=== PATIENT | female | born 1955 | race Caucasian/White ===

== ENCOUNTER 2023-10-26 06:33 | Day surgery (SDC) | payer MEDICARE, BC, SELFPAY ==
[2023-10-20 09:08] VITALS: BMI 33.8
--- NOTE | 2023-10-23 10:13 | HO.ANESPROP2 ---
Documented by User: Lucila Corley NP 10/23/23 10:14 HPI - Anesthesia Eval Consult details Narrative: 68yo F for?Right Cataract Extraction IOL Insertion No previous cataract [facility] Past Medical History Medical History Palpitations Colon cancer Rosacea Osteopenia Iron deficiency anemia Back pain Diabetes Surgical History Surgical History Hx of gastric bypass Hx of lumbar discectomy History of surgery on right wrist History of colon resection Social History Social History Patient Tobacco Use Status: Never used Tobacco Use of substances other than those prescribed or required for medical reasons: No Advance Directives Information Provided: Yes Advance Directives on File: No Meds Allergies Allergy/AdvReac Type Severity Reaction Status Date / Time No Known Allergies Allergy Verified 10/20/23 09:01 Home Medications ?Medication ?Instructions ?Recorded ?Confirmed ?Last Taken ?Type ascorbic acid (vitamin C) 500 mg 500 mg PO DAILY 10/20/23 10/20/23 Unknown History tablet (Vitamin C) ferrous sulfate 325 mg (65 mg 325 mg PO DAILY 10/20/23 10/20/23 Unknown History iron) tablet ibuprofen 600 mg tablet 600 mg PO Q6H PRN Pain 10/20/23 10/20/23 Unknown History multivitamin 1 tab PO DAILY 10/20/23 10/20/23 Unknown History omega 6-zxb-ayd-fish oil 1,000 mg 1 cap PO DAILY 10/20/23 10/20/23 Unknown History (120 mg-180 mg) capsule (Fish Oil) vitamin B complex 1 tab PO DAILY 10/20/23 10/20/23 Unknown History Exam Height,Weight and Vital Signs: Height 5 ft 5.35 in Weight 93 kg Assessment and Plan Assessment Anesthesia Assessment: Chart Reviewed Documented by User: Chiara Mitchell MD 10/26/23 07:30 PMFSH Past Medical History Medical History Palpitations Colon cancer Rosacea Osteopenia Iron deficiency anemia Back pain Diabetes Surgical History Surgical History Hx of gastric bypass Hx of lumbar discectomy History of surgery on right wrist History of colon resection History of Problems with Anesthesia: No Social History Social History Patient Tobacco Use Status: Never used Tobacco Use of substances other than those prescribed or required for medical reasons: No Advance Directives Information Provided: Yes Advance Directives on File: No Meds Allergies Allergy/AdvReac Type Severity Reaction Status Date / Time No Known Allergies Allergy Verified 10/20/23 09:01 Home Medications ?Medication ?Instructions ?Recorded ?Confirmed ?Last Taken ?Type ascorbic acid (vitamin C) 500 mg 500 mg PO DAILY 10/20/23 10/20/23 Unknown History tablet (Vitamin C) ferrous sulfate 325 mg (65 mg 325 mg PO DAILY 10/20/23 10/20/23 Unknown History iron) tablet ibuprofen 600 mg tablet 600 mg PO Q6H PRN Pain 10/20/23 10/20/23 Unknown History multivitamin 1 tab PO DAILY 10/20/23 10/20/23 Unknown History omega 6-lph-ihf-fish oil 1,000 mg 1 cap PO DAILY 10/20/23 10/20/23 Unknown History (120 mg-180 mg) capsule (Fish Oil) vitamin B complex 1 tab PO DAILY 10/20/23 10/20/23 Unknown History Exam Airway Mallampati Class: II TM Dist: >3cm Loose/Missing/Broken Teeth: No Heart: RRR Lungs: CTA Assessment and Plan Assessment Anesthesia Assessment: Anesthesia Plan Discussed Final Anesthetic Review History of Problems with Anesthesia: No NPO: Yes ASA Class: II Final Preanesthetic Review: Meds/Allgs Chart Reviewed, Consent Obtained/Reviewed and Anes Risks/Benef Reviewed Patient Risk: Low Procedure Risk: Low Anesthetic Plan Anesthetic Plan: MAC: Disposition: Standard PACU
[2023-10-26 06:58] VITALS: BMI 34.2
[2023-10-26] MEDS: Lactated Ringers 500 ML 50 ML IV (06:58)
[2023-10-26 06:59] VITALS: BP 152/79; PULSE 57; RESP 20; TEMP 36.4; O2SAT 98
--- NOTE | 2023-10-26 07:35 | P.PCNO_ITS ---
Ophthalmology Procedure Procedure Date of Service: 10/26/23 Ophthalmology Viscoelastic: Healon Duet Dual Pack Pro Ophthalmology Lenses: IOL Acrysof MP - [id number] (24) Procedure Notes: PREOPERATIVE DIAGNOSIS: Decreased visual acuity right eye secondary to cataract POSTOPERATIVE DIAGNOSIS: Same PROCEDURE: Right cataract extraction with intraocular lens insertion SURGEON: Pipo Dolan M.D. ANESTHESIA: Topical/MAC ESTIMATED BLOOD LOSS: None COMPLICATIONS: None After obtaining informed consent, the patient was brought to the operating room suite and placed in the supine position. After adequate sedation per anesthesia, topical drops of Tetracaine were given to the right eye. The eye was then prepped and draped in the usual sterile fashion. The operating room microscope was then positioned over the operative eye and a lid speculum placed. A paracentesis was created. Viscoelastic was then instilled into the anterior chamber. A three plane incision was then created temporally, utilizing a 2.85 mm keratome. Capsulotomy forceps were then utilized to create a circular tear capsulotomy. Hydrodissection and hydrodelineation were carried out until adequate mobilization of the nucleus occurred. Phacoemulsification was then utilized to remove the dense central nucl eus followed by removal of the cortical material utilizing the automated aspiration irrigation unit. Viscoelastic was instilled into the posterior capsular bag followed by placement of a posterior chamber intraocular lens without difficulty. The residual Viscoelastic was then removed utilizing the automated IA machine. The wound was checked and found to be watertight. The patient tolerated the procedure well and the lid speculum was removed. Intracameral injection of Vigamox 0.1 mL followed by a subtenon injection of Kenalog-40 0.2 mL were administered. The patient will be seen in the a.m.
--- NOTE | 2023-10-26 07:35 | MHC.SHP ---
Pre-Procedural Eval Section A - 24 Hr Update-Section A only Date of Service: 10/26/23 The patient is an INPATIENT: No Changes since office visit: No Cold of Flu in the past 2 weeks, No New Medical Problems, No Changes in Medication and No Patient answered all questions The patient has been examined within 24 hours of the surgical procedure. The History & Physical has been completed within 30 days and I have reviewed it.: Yes Section B - Complete if H&P > 30 days Chief Complaint: Age-related nuclear cataract, right eye Allergies: Allergies Allergy/AdvReac Type Severity Reaction Status Date / Time No Known Allergies Allergy Verified 10/20/23 09:01 Plan Diagnosis/Plan: Unchanged I have reviewed the history and physical and performed a pertinent physical examination on my patient. No changes have occurred unless specified. Time Spent With Patient Time: Total time managing care of this patient today ____ minutes.
[2023-10-26 08:14] VITALS: BP 159/84; PULSE 66; RESP 16; TEMP 36.4; O2SAT 98
== END 2023-10-26 08:27 | disposition home or self-care (01) ==
PROVIDERS: PCP Internal Medicine; Visit Provider Ophthalmology
PROC: (CPT 66985; principal; 2023-10-26 07:30)
DX: H25.11 Age-related nuclear cataract, right eye (principal); H54.7 Unspecified visual loss; Z83.511 Family history of glaucoma; H53.001 Unspecified amblyopia, right eye; E11.9 Type 2 diabetes mellitus without complications; D50.9 Iron deficiency anemia, unspecified; Z90.49 Acquired absence of other specified parts of digestive tract; Z85.038 Personal history of other malignant neoplasm of large intestine
CPT/HCPCS: 66984; J2250; J3010; J3301; V2630